=== PATIENT | male | born 2000 | race Two or more races ===

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

== ENCOUNTER 2021-06-18 16:24 | Emergency (ER) | payer MEDICAID, OTHER ==
[~2021-06-18] VITALS: Ht 172.7 cm; Wt 85.0 kg
[2021-06-18 16:27] VITALS: BP 116/61
[2021-06-18] MEDS ORDERED: SODIUM CHLORIDE 0.9% 1,000 ML IV ONE (18:45)
[2021-06-18 18:55] LABS: BASOPHILS % 0.4 % (0.0-2.0); EOSINOPHILS % 1.1 % (0.0-5.0); HEMATOCRIT. 39.4 % (42.0-52.0); HEMOGLOBIN. 13.2 g/dL (14.0-18.0); LYMPHOCYTES % 25.4 % (20.0-50.0); MEAN CORPUSCULAR HEMOGLOBIN 28.7 pg (28.0-32.0); MEAN CORPUSCULAR VOLUME 85.5 fL (80.0-94.0); MONOCYTES % 5.9 % (2.0-8.0); NEUTROPHILS % 67.2 % (40.0-76.0); RED CELL DISTRIBUTION WIDTH 13.1 % (11.6-14.6)
[2021-06-18 19:04] LABS: CHLORIDE 102 mEq/L (98-107)
[2021-06-18 19:15] LABS: ETHANOL BLOOD < 10 mg/dL
[2021-06-18 21:25] LABS: MEAN PLATELET VOLUME 9.7 fl (7.4-10.4); PLATELET 184 x1000/uL (130-400)
== END 2021-06-18 19:25 | disposition left against medical advice (07) ==
LOC: ER 16:24
DX: R55 Syncope and collapse (principal)
CPT/HCPCS: 36415; 80053; 80320; 83605; 83690; 84484; 85025; 99283; J7030; G0480